=== PATIENT | female | born 1980 | race Caucasian/White ===

== ENCOUNTER 2018-04-04 19:02 | Emergency (ER) | payer MEDICAID ==
[~2018-04-04] VITALS: Ht 162.6 cm; Wt 84.0 kg
[~2018-04-04 19:02] MED LIST: IBUP-1984 PO
[2018-04-04 20:12] LABS: CLARITY,URINE CLEAR (Clear); COLOR,URINE YELLOW (Yellow); GLUCOSE, URINE NEGATIVE (Neg); KETONES,URINE NEGATIVE (Neg); LEUKOCYTE ESTERASE ,URINE NEGATIVE (Neg); NITRITES, URINE NEGATIVE (Neg); OCCULT BLOOD,URINE NEGATIVE (Neg); PH,URINE 5.5 (4.8-8.0); PROTEIN,URINE NEGATIVE (Neg); UROBILINOGEN,URINE 0.2 E.U/dL (0.2-1.0)
[2018-04-04 20:14] LABS: UA COLLECTION TYPE CLN CATCH MIDSTREAM
[2018-04-04 20:22] LABS: BASOPHILS % (AUTO) 0.3 % (0-1); EOSINOPHILS # (AUTO) 0.4 X10'3 (0-0.9); EOSINOPHILS % (AUTO) 3.1 % (0-6); HEMATOCRIT 39.4 % (35.0-45.0); HEMOGLOBIN 13.6 g/dl (12.0-16.0); LYMPHOCYTES # (AUTO) 3.1 X10'3 (1.1-4.8); LYMPHOCYTES % (AUTO) 25.1 % (21-51); MEAN CORPUSCULAR HEMOGLOBIN 33.8 PG (27.0-31.0); MEAN CORPUSCULAR HGB CONC 34.6 % (33.0-36.5); MEAN CORPUSCULAR VOLUME 97.5 FL (78-98); MEAN PLATELET VOLUME 8.3 FL (7.4-10.4); MONOCYTES # (AUTO) 0.6 X10'3 (0-0.9); MONOCYTES % (AUTO) 4.9 % (2-12); NEUTROPHILS # (AUTO) 8.2 X10'3 (1.8-7.7); NEUTROPHILS % (AUTO) 66.6 % (42-75); PLATELET COUNT 263 X10'3 (140-440); RED BLOOD COUNT 4.04 X10'6 (4.20-5.60); RED CELL DISTRIBUTION WIDTH 12.3 % (11.5-14.5); WHITE BLOOD COUNT 12.3 X10'3 (4.5-11.0)
[2018-04-04 20:37] LABS: ALANINE AMINOTRANSFERASE 15 U/L (12-78); ALBUMIN 3.5 G/DL (3.4-5.0); ALKALINE PHOSPHATASE 80 IU/L (46-116); ANION GAP 10 (8-16); ASPARTATE AMINO TRANSFERASE 12 U/L (10-37); BILIRUBIN,TOTAL 0.3 MG/DL (0.1-1.0); BLOOD UREA NITROGEN 13 MG/DL (7-18); BUN/CREATININE RATIO 15.3 (6.6-38.0); CALCIUM 8.6 MG/DL (8.5-10.1); CHLORIDE 107 MMOL/L (99-107); CREATININE 0.85 MG/DL (0.40-0.90); GLUCOSE 96 MG/DL (70-104); POTASSIUM 3.9 MMOL/L (3.5-5.1); SODIUM 143 MMOL/L (135-145); TOTAL CARBON DIOXIDE 26.4 MMOL/L (24-32); TOTAL PROTEIN 6.9 G/DL (6.4-8.2); eGFR 75 ML/MIN
[2018-04-04] MEDS ORDERED: PRED20TA PO (20:59)
[2018-04-04 21:05] VITALS: BP 121/68
== END 2018-04-04 21:10 | disposition home or self-care (01) ==
LOC: ER 19:03
DX: T78.40XA Allergy, unspecified, initial encounter (principal); R60.9 Edema, unspecified; E78.00 Pure hypercholesterolemia, unspecified; Z91.018 Allergy to other foods; Z79.899 Other long term (current) drug therapy; X58.XXXA Exposure to other specified factors, initial encounter; Y93.89 Activity, other specified; Y92.89 Other specified places as the place of occurrence of the external cause; Y99.8 Other external cause status
CPT/HCPCS: 36415; 80053; 81003; 85025; 99284

== ENCOUNTER 2019-03-28 16:59 | Emergency (ER) | payer MEDICAID ==
[~2019-03-28] VITALS: Ht 162.6 cm; Wt 106.4 kg
[2019-03-28 17:09] VITALS: BP 149/66
[2019-03-28] MEDS ORDERED: PRED20TA PO (17:13)
[2019-03-28] MEDS ORDERED: predniSONE 20 mg tablet PO ONE (17:15)
== END 2019-03-28 18:01 | disposition home or self-care (01) ==
LOC: ER 17:01
DX: L50.8 Other urticaria (principal); E78.00 Pure hypercholesterolemia, unspecified; Z98.51 Tubal ligation status; Z91.018 Allergy to other foods; Z88.6 Allergy status to analgesic agent
CPT/HCPCS: 99283; J7512

== ENCOUNTER 2024-07-10 10:07 | Emergency (ER) | payer BC, MEDICAID ==
[~2024-07-10] VITALS: Ht 233.7 cm; Wt 103.5 kg
[2024-07-10] MEDS ORDERED: AMOX-580 PO (11:54)
[2024-07-10 12:10] VITALS: BP 146/77; PULSE 74; RESP 16; TEMP 98.9; O2SAT 99
== END 2024-07-10 12:12 | disposition home or self-care (01) ==
LOC: ER 10:09
DX: J01.90 Acute sinusitis, unspecified (principal); Z20.822 Contact with and (suspected) exposure to COVID-19; E78.00 Pure hypercholesterolemia, unspecified; Z88.6 Allergy status to analgesic agent; Z88.8 Allergy status to other drugs, medicaments and biological substances; Z79.2 Long term (current) use of antibiotics; Z79.899 Other long term (current) drug therapy; Z98.51 Tubal ligation status
CPT/HCPCS: 36415; 87502; 87503; 87811; 99283